=== PATIENT | female | born 1985 | race Caucasian/White ===

== ENCOUNTER 2017-03-11 13:25 | Emergency (ER) | payer OTHER ==
[~2017-03-11] VITALS: Ht 165.1 cm; Wt 83.5 kg
[~2017-03-11 13:25] MED LIST: ANTIDEPRESSANT; CIPRO500 MG PO; Motrin PO; NORCO 5/3251 TABLET PO; VIIBRYD
[2017-03-11 13:49] LABS: MCH 28.9 PG (29.0-34.0); MCHC 33.2 G/DL (30.0-36.0); MCV 86.9 FL (83-99); MEAN PLAT.VOLUME 10.1 uM^3 (9.5-12.4); PLATELET COUNT 273 K/uL (156-360); RBC DIS.WIDTH-CV 13.1 % (11.8-14.6); RBC DIS.WIDTH-SD 41.1 % (39-53); RED BLOOD COUNT 4.26 M/uL (3.80-5.20); WHITE BLOOD COUNT 7.8 K/uL (4.1-10.2)
[2017-03-11 14:06] LABS: CHLORIDE 104 mEq/L (99-109); POTASSIUM 4.5 mEq/L (3.7-5.4); SODIUM 136 mEq/L (136-147)
[2017-03-11 14:08] LABS: GLUCOSE 89 mg/dL (70-99)
[2017-03-11 14:09] LABS: ANION GAP 9 MEQ/L (2-14)
[2017-03-11 14:10] LABS: TOTAL BILIRUBIN < 0.1 mg/dL (0.0-1.0)
[2017-03-11 14:12] LABS: ALKALINE PHOSPHATASE 66 IU/L (3-129); GFR ESTIMATE (CALCULATED) > 59 mL/min/
[2017-03-11 14:13] LABS: UREA NITROGEN (BUN) 10 mg/dL (9-23)
[2017-03-11 14:15] LABS: LIPASE 35 U/L (1.0-51.0)
[2017-03-11 14:23] LABS: QUANTITATIVE HCG < 4.0 MIU/ML
[2017-03-11 16:37] LABS: ADD MIUA? NO; BILIRUBIN NEGATIVE; BLOOD NEGATIVE; COLOR STRAW ((YELLOW)); GLUCOSE (STRIP) NEGATIVE; KETONES NEGATIVE; LEUKOCYTES NEGATIVE; NITRITE NEGATIVE; PROTEIN (STRIP) NEGATIVE; SPECIFIC GRAVITY 1.008 (1.000-1.030); UCUL ADDED? NO; UROBILINOGEN 0.2 MG/DL (0.2-1.0)
[2017-03-11] MEDS ORDERED: CITRATE OF MAG296 ML PO (17:26)
[2017-03-11] MEDS ORDERED: BENTYL20 MG PO (17:26)
[2017-03-11 17:40] VITALS: BP 151/99
== END 2017-03-11 17:54 | disposition home or self-care (01) ==
LOC: EME 13:25
DX: R10.30 Lower abdominal pain, unspecified (principal); K59.00 Constipation, unspecified; F17.200 Nicotine dependence, unspecified, uncomplicated
CPT/HCPCS: 74020; 80053; 81003; 83630; 83690; 84702; 85027; 87493; 87506; 99281; 99283

== ENCOUNTER 2018-01-05 20:10 | Emergency (ER) | payer OTHER ==
[~2018-01-05] VITALS: Ht 165.1 cm; Wt 75.3 kg
[~2018-01-05 20:10] MED LIST changes: +BENTYL20 MG PO; +CITRATE OF MAG296 ML PO
[2018-01-05 20:52] LABS: APPEARANCE SL.HAZY ((CLEAR)); BILIRUBIN NEGATIVE; BLOOD NEGATIVE; COLOR YELLOW ((YELLOW)); GLUCOSE (STRIP) NEGATIVE; KETONES NEGATIVE; LEUKOCYTES MODERATE; NITRITE NEGATIVE; PROTEIN (STRIP) NEGATIVE; SPECIFIC GRAVITY 1.016 (1.000-1.030); UROBILINOGEN 0.2 MG/DL (0.2-1.0)
[2018-01-05 20:57] LABS: HEMATOCRIT 35.6 % (36.0-46.0); HEMOGLOBIN 11.5 G/DL (11.9-15.5); MCH 27.4 PG (29.0-34.0); MCHC 32.3 G/DL (30.0-36.0); MCV 84.8 FL (83-99); PLATELET COUNT 298 K/uL (156-360); WHITE BLOOD COUNT 7.6 K/uL (4.1-10.2)
[2018-01-05 21:02] LABS: BACTERIA RARE /HPF; EPITHELIAL CELLS 2+ /HPF; MUCUS TRACE /LPF; UCUL ADDED? YES; WHITE BLOOD CELLS 15-20 /HPF (0-5)
[2018-01-05 21:06] LABS: CHLORIDE 107 mEq/L (99-109); SODIUM 138 mEq/L (136-147)
[2018-01-05 21:09] LABS: GLUCOSE 94 mg/dL (70-99); TOTAL PROTEIN 6.8 g/dL (6.4-8.3)
[2018-01-05 21:11] LABS: TOTAL BILIRUBIN 0.3 mg/dL (0.0-1.0)
[2018-01-05 21:12] LABS: ALKALINE PHOSPHATASE 85 IU/L (3-129)
[2018-01-05 21:13] LABS: CREATININE 0.7 mg/dL (0.6-1.3); GFR ESTIMATE (CALCULATED) > 59 mL/min/
[2018-01-05 21:14] LABS: AST (GOT) 26 IU/L (2-34); UREA NITROGEN (BUN) 10 mg/dL (9-23)
[2018-01-05 21:15] LABS: ALT (GPT) 35 IU/L (3-49)
[2018-01-05 21:22] LABS: QUANTITATIVE HCG 2934.5 MIU/ML
[2018-01-05] MEDS ORDERED: KEFLEX500 MG PO (23:58)
[2018-01-06 00:10] VITALS: BP 137/88
== END 2018-01-06 00:12 | disposition home or self-care (01) ==
LOC: EME 20:10
DX: O23.11 Infections of bladder in pregnancy, first trimester (principal); Z3A.01 Less than 8 weeks gestation of pregnancy; O99.331 Smoking (tobacco) complicating pregnancy, first trimester; F17.200 Nicotine dependence, unspecified, uncomplicated; Z88.1 Allergy status to other antibiotic agents
CPT/HCPCS: 76801; 80053; 81003; 84702; 85027; 87077; 87086; 99281; 99284